=== PATIENT | female | born 1965 | race Caucasian/White ===

== ENCOUNTER 2018-10-28 15:30 | Emergency (ER) | payer MEDICAID ==
[~2018-10-28] VITALS: Ht 172.7 cm; Wt 99.8 kg
[~2018-10-28 15:30] MED LIST: ALBU18 MT; BECL80AE9 MT; HYDR12.56 PO; IBUP800T24 PO; NAPR500T31 PO; NIC21P TOP; NIFE30TA76 PO
[2018-10-28 15:39] VITALS: BP 138/93
== END 2018-10-28 16:58 | disposition home or self-care (01) ==
LOC: ER 15:33
DX: M79.604 Pain in right leg (principal); J44.9 Chronic obstructive pulmonary disease, unspecified; I10 Essential (primary) hypertension; I25.2 Old myocardial infarction; F17.210 Nicotine dependence, cigarettes, uncomplicated; Z86.73 Personal history of transient ischemic attack (TIA), and cerebral infarction without residual deficits; Z79.899 Other long term (current) drug therapy; Z79.1 Long term (current) use of non-steroidal anti-inflammatories (NSAID)
CPT/HCPCS: 93971

== ENCOUNTER → 2022-06-09 | Outpatient (CLI) | payer MEDICAID ==
[~2022-06-09] VITALS: Ht 172.7 cm; Wt 73.9 kg
[~2022-06-09] MED LIST changes: +ADENOSINE 62 MG in GIVE UN-DILUTED 0 ML IV STA; -IBUP800T24 PO; +IBUP800T27 PO; +NIFE1TAB31 PO; -NIFE30TA76 PO
[2022-06-09 08:43] VITALS: BP 153/92
== END | disposition home or self-care (01) ==
LOC: XYW 07:32
PROVIDERS: ATTEND Specialist
DX: I10 Essential (primary) hypertension (principal); E78.5 Hyperlipidemia, unspecified
CPT/HCPCS: 78452; 93017; A9500; J0153

== ENCOUNTER 2024-04-03 12:55 | Inpatient (IN) | payer MEDICAID ==
[~2024-04-03] VITALS: Ht 172.7 cm; Wt 77.4 kg
[~2024-04-03 12:55] MED LIST changes: -ADENOSINE 62 MG in GIVE UN-DILUTED 0 ML IV STA; +ASPI81CH59 PO; +ATOR20TA PO; +CETI-195 PO; +DAPA1TAB4 PO; +GLYC1AER IN; +HYDR-4902 PO; -HYDR12.56 PO; +HYDR12.59 PO; +IBUP-1456 PO; -IBUP800T27 PO; +LISI10TA34 PO; +LOSA-533 PO; +NAPR-746 PO; -NAPR500T31 PO
--- NOTE | 2024-04-03 13:15 | ECG ---
[facility] Test Date: 2024-04-03 Test Time: 13:11:08 Pat Name: KVNG JARAMILLO Department: ER Room: [address] [place] [address] Gender: F Group Worker: DWIGHT : 1965 Requested By: EDGARD ARZATE Order Number: [id number] Reading MD: Dank Nolasco Measurements Intervals [place] Rate: 110 P: 82 GA: 142 QRS: 83 QRSD: 85 T: 121 QT: 312 QTc: 423 Interpretive Statements Sinus tachycardia Paired ventricular premature complexes Right atrial enlargement Borderline right axis deviation Nonspecific T abnrm, anterolateral leads Baseline wander in lead(s) I,II,aVR Electronically Signed On 04-03-2024 16:12:29 PST by Dank Nolasco Please click the below link to view image of tracing.
--- NOTE | 2024-04-03 13:28 | ED.PDOC ---
SOB-HPI HPI Comments 58-year-old female presents with a chief complaint of SOB x yesterday onset with associated cough. Patient states that she has COPD and continues to smoke cigarettes. Patient reports that she feels like she cannot take a full deep breath. Patient has some audible wheezing. Patient denies use of inhaler or nebulizer at home. Non-productive cough. No other symptoms or modifying factors present at this time. Chief Complaint: Shortness of Breath Time Seen by MD: 13:01 Primary Care Provider: SURINDER Chang notes: Medications, Allergies Information Source: Patient Mode of Arrival: Ambulatory Severity: Moderate Timing: Days Duration: Since onset Context: At Rest PE Risk Factors: None History of: COPD, Other (HTN) Prehospital treatment: None Associated Signs and Symptoms: Wheeze, Cough If cough with SOB: Non-Productive Past Medical History PAST MEDICAL HISTORY: Cancer, COPD, CVA, HTN, [place] Surgical History: , Tubal Ligation ASSOCIATE SALES History: No Pertinent ASSOCIATE SALES History Family History Family History: Unobtainable Social History Smoker: Cigarettes Alcohol: Occasionally Drugs: Denies Drug Use Lives In: Home Constitutional: denies: chills, diaphoresis, fatigue, fever, malaise, sweats, weakness, others EENTM: denies: blurred vision, double vision, ear bleeding, ear discharge, ear drainage, ear pain, ear ringing, eye pain, eye redness, hearing loss, mouth pain, mouth swelling, nasal discharge, nose bleeding, nose congestion, nose pain, photophobia, tearing, throat pain, throat swelling, voice changes, others Respiratory: reports: shortness of breath; denies: cough, hemoptysis, orthopnea, SOB at rest, SOB with excertion, stridor, wheezing, others Cardiovascular: denies: chest pain, dizzy spells, diaphoresis, Dyspnea on exertion, edema, irregular heart beat, left arm pain, lightheadedness, palpitations, PND, syncope, others Gastrointestinal: denies: abdomen distended, abdominal pain, blood streaked bowels, constipated, diarrhea, dysphagia, difficulty swallowing, hematemesis, melena, nausea, poor appetite, poor fluid intake, rectal bleeding, rectal pain, vomiting, others Genitourinary: denies: abnormal vagina bleeding, burning, dyspareunia, dysuria, flank pain, frequency, hematuria, incontinence, pain, , vagina discharge, urgency, others Neurological: denies: dizziness, fainting, headache, left sided numbness, left sided weakness, numbness, paresthesia, pre-existing deficit, right sided numbn ess, right sided weakness, seizure, speech problems, tingling, tremors, weakness, others Musculoskeletal: denies: back pain, gout, joint pain, joint swelling, muscle pain, muscle stiffness, neck pain, others Integumetry: denies: bruises, change in color, change in hair/nails, dryness, laceration, lesions, lumps, rash, wounds, others Allergic/Immunocompromised: denies: Difficulty Healing, Frequent Infections, Hives, Itching, others Hematologic/Lymphatic: denies: anemia, blood clots, easy bleeding, easy bruising, swollen glands, others Endocrine: denies: excessive hunger, excessive sweating, excessive thirst, excessive urination, flushing, intolerance to cold, intolerance to heat, unexplained weight gain, unexplained weight loss, others Psychiatric: denies: anxiety, bipolar disorder, depression, hopeless, panic disorder, schizophrenia, sleepless, suicidal, others All Other Systems: Reviewed and Negative Physical Exam General Appearance: No Apparent Distress, Normal HEENT: Normal ENT Inspection, Pharynx Normal, TMs Normal Neck: Full Range of Motion, Non-Tender, Normal, Normal Inspection Respiratory: Chest Non-Tender, Wheezing (BILATERALLY) Cardiovascular: No Edema, No JVD, No Murmur, No Gallop, Normal Peripheral Pulses, Regular Rate/Rhythm Breast Exam: Deferred Gastrointestinal: No Organomegaly, Non Tender, No Pulsatile Mass, Normal Bowel Sounds, Soft Genitalia: Deferred Pelvic: Deferred Rectal: Deferred Extremities: No calf tenderness, Normal capillary refill, Normal inspection, Normal range of motion, Non-tender, No pedal edema Musculoskeletal : Apperance: Normal Neurologic: Alert, rug shampooer II-XII nml as Tested, No Motor Deficits, Normal Affect, Normal Mood, No Sensory Deficits Cerebellar Function: Normal Reflexes: Normal Skin: Dry, Normal Color, Warm Lymphatic: No Adenopathy Was a procedure done? Was a procedure done?: No Differential Dx Differential Diagnosis: Anxiety, Asthma, Bronchitis, CHF, COPD, Hyperventilation, Panic Attack, Pneumonia, Pneumothorax, Respiratory Distress, URI X-Ray, Labs, Meds, VS Vital Signs Date Time Temp Pulse Resp B/P (MAP) Pulse Ox O2 Delivery O2 Flow Rate FiO2 04/03/24 13:37 18 92 Room Air* 0 21 04/03/24 13:12 97.6 115 18 154/86 (108) 94 04/03/24 13:12 18 94 Room Air 04/03/24 13:11 110 Lab Test 04/03/24 13:33 Range/Units White Blood Count 7.8 4.4-10.8 10^3/uL Red Blood Count 5.14 4.0-5.20 10^6/uL Hemoglobin 15.7 12.2-16.2 g/dL Hematocrit 47.4 H 36.0-46.0 % Mean Corpuscular Volume 92.2 80.0-100.0 fL Mean Corpuscular Hemoglobin 30.5 28.0-32.0 pg Mean Corpuscular Hemoglobin Concent 33.1 32.0-36.0 g/dL Red Cell Distribution Width 13.4 11.8-14.3 % Platelet Count 213 140-450 10^3/uL Mean Platelet Volume 8.4 6.9-10.8 fL Neutrophils (%) (Auto) 85.9 H 37.0-80.0 % Lymphocytes (%) (Auto) 6.1 L 10.0-50.0 % Monocytes (%) (Auto) 7.6 0.0-12.0 % Eosinophils (%) (Auto) 0.0 0.0-7.0 % Basophils (%) (Auto) 0.4 0.0-2.0 % Neutrophils # (Auto) 6.7 1.6-8.6 10 ^3/uL Lymphocytes # (Auto) 0.5 0.4-5.4 10 ^3/uL Monocytes # (Auto) 0.6 0-1.3 10 ^3/uL Eosinophils # (Auto) 0 0-0.8 10 ^3/uL Basophils # (Auto) 0 0-0.2 10 ^3/uL Nucleated Red Blood Cells 0.3 % Sodium Level 137 136-145 mmol/L Potassium Level 5.4 H 3.5-5.1 mmol/L Chloride Level 101 98-107 mmol/L Carbon Dioxide Level 27 20-31 mmol/L Anion Gap 9 5-15 Blood Urea Nitrogen 19 9-23 mg/dL Creatinine 1.29 H 0.550-1.02 mg/dL Glomerular Filtration Rate Calc 48 >90 mL/min BUN/Creatinine Ratio 14.7 10.0-20.0 Serum Glucose 96 74-106 mg/dL Calcium Level 11.0 H 8.7-10.4 mg/dL Troponin I High Sensitivity 6 </=34 ng/L Current Medications Medications (Trade) Dose Ordered Sig/Patricia Route Start Time Stop Time Status Last Admin Albuterol (Ventolin Medneb) 5 mg ONCE ONCE NEB 04/03/24 13:30 04/03/24 13:31 DC 04/03/24 13:36 Ipratropium [place] (Atrovent Medneb) 0.5 mg ONCE ONCE NEB 04/03/24 13:30 04/03/24 13:31 DC 04/03/24 13:36 Time of 1ST Reevaluation: 13:31 Reevaluation 1ST: Unchanged Time of 2ND Reevaluation: 14:25 Reevaluation 2ND: Improved Patient Education/Counseling: Diagnosis, Treatment, Prognosis, Need For Follow Up Family Education/Counseling: No Family Present Departure 1 Departure Time of Disposition: 14:25 Impression: Primary Impression: COPD exacerbation Additional Impressions: Pneumonia Qualified Codes: J18.9 - Pneumonia, unspecified organism Tobacco abuse Tobacco abuse counseling Disposition: ADMITTED INPATIENT Admit to: [facility] Condition: Stable Discharged With: Self Critical Care Note Critical Care Time?: Yes (55 min-critical care time only) Critical care comment: Due to concerns for patients condition deteriorating, the care required my highest level of attention and readiness to intervene. I assessed the patient, reviewed the medical records, ordered the appropriate tests and treatments, then reassessed for results and responsiveness. I communicated with medical personnel and consultants and formulated a plan of care. Total critical care time excludes any procedures Stability Stability form required: No Heart Score Heart Score: Heart Score Response (Comments) Value History N/A 0 EKG N/A 0 Age N/A 0 Risk Factors N/A 0 Troponin N/A 0 Total 0 I personally scribed for EDGARD ARZATE MD ([email or web address]) on 04/03/24 at 13:28. Electronically submitted by Samm Lao ([email or web address]). EDGARD ARZATE MD Apr 03, 2024 13:28
[2024-04-03] MEDS: IPRATROPIUM BROM 0.5 MG/2.5ML INH SOL NEB ONE (13:36)
[2024-04-03] MEDS: ALBUTEROL SULF 2.5 MG/0.5ML(0.5%) NEB SOLN NEB ONE (13:36)
[2024-04-03 13:45] LABS: Basophils # (auto) 0 10 ^3/uL (0-0.2); Basophils % (auto) 0.4 % (0.0-2.0); Eosinophils # (auto) 0 10 ^3/uL (0-0.8); Hematocrit 47.4 % (36.0-46.0); Hemoglobin 15.7 g/dL (12.2-16.2); Lymphocytes # (auto) 0.5 10 ^3/uL (0.4-5.4); Lymphocytes % (auto) 6.1 % (10.0-50.0); Mean Corpuscular Hemoglobin 30.5 pg (28.0-32.0); Mean Corpuscular Hgb Conc. 33.1 g/dL (32.0-36.0); Mean Corpuscular Volume 92.2 fL (80.0-100.0); Monocytes # (auto) 0.6 10 ^3/uL (0-1.3); Monocytes % (auto) 7.6 % (0.0-12.0); Neutrophils # (auto) 6.7 10 ^3/uL (1.6-8.6); Neutrophils % (auto) 85.9 % (37.0-80.0); Nucleated Red Blood Cells % 0.3 %; Platelet Count (auto) 213 10^3/uL (140-450); Red Blood Cells 5.14 10^6/uL (4.0-5.20); Red Cell Distribution Width 13.4 % (11.8-14.3); White Blood Cell 7.8 10^3/uL (4.4-10.8)
--- NOTE | 2024-04-03 13:59 | DVH ---
CHEST RADIOGRAPH Indication: sob Technique: Single frontal view of the chest was obtained Comparison: None FINDINGS: Lines and Tubes: None Lungs: Increased density right lower lobe may be from patient's breast 4 pulmonary airspace disease. Consider lateral film for further evaluation. Pleura: No effusion. No pneumothorax. Cardiomediastinal contours: Unremarkable Bones: No acute osseous abnormality. IMPRESSION: 1. Increased tissue density in the right lower lung field. HS:Y
[2024-04-03 14:12] LABS: Chloride 101 mmol/L (98-107); Sodium 137 mmol/L (136-145)
[2024-04-03 14:13] LABS: Anion Gap 9 (5-15); Carbon Dioxide 27 mmol/L (20-31)
[2024-04-03 14:18] LABS: BUN/Creatinine Ratio 14.7 (10.0-20.0); Blood Urea Nitrogen 19 mg/dL (9-23); Glucose 96 mg/dL (74-106)
[2024-04-03 14:20] LABS: Potassium 5.4 mmol/L (3.5-5.1)
--- NOTE | 2024-04-03 15:20 | DVHHP2 ---
Patient Family History: Family history: Alzheimer's disease G8 FATHER Family history: Diabetes mellitus G8 MOTHER Allergies: Coded Allergies: NO KNOWN ALLERGIES (Unverified , 03/30/14) Home Meds Reported Medications Nicotine (Nicoderm 21MG/24HR) 1 Patch Ph, 1 PATCH TOP DAILY, #28 PATCH 1 Refill 03/31/14 Beclomethasone Dipropionate (Qvar) 80 Mcg Aer, 2 PUFF MT DAILY, #9 03/31/14 Albuterol Sulfate (Ventolin Hfa) Aer, 2 PUFF MT DAILYP, #18 03/31/14 Nifedipine (Nifedipine Er) 30 Mg Tab, PO DAILY, #30 03/31/14 Naproxen (Naproxen) 500 Mg Tab, PO BID, #60 03/31/14 Ibuprofen (Ibuprofen) 800 Mg Tab, PO Q8HPRN PRN for MODERATE PAIN, #90 03/31/14 Hydrochlorothiazide (Hydrochlorothiazide) 12.5 Mg Cap, PO DAILY, #30 03/31/14 Current Medications Current Medications Medications (Trade) Dose Ordered Sig/Patricia Route PRN Reason Start Time Stop Time Status Last Admin Temazepam (Restoril) 15 mg QHSP PRN PO FOR INSOMNIA 04/03/24 15:30 Ondansetron HCl (Zofran) 4 mg Q4HP PRN IV NAUSEA / VOMITING 04/03/24 15:30 Docusate Sodium (Colace Capsule) 100 mg BIDPRN PRN PO FOR CONSTIPATION 04/03/24 15:30 Enoxaparin Sodium (Lovenox) 40 mg DAILY SC 04/04/24 10:00 Azithromycin 250 ml @ 125 mls/hr DAILY IV 04/04/24 10:00 Ipratropium [place] (Atrovent Medneb) 0.5 mg Q6HR NEB 04/03/24 18:00 04/03/24 19:05 Albuterol (Ventolin Medneb) 5 mg Q6HR NEB 04/03/24 18:00 04/03/24 19:05 Nitroglycerin (Ntrostat Sublingual) 0.4 mg Q5MINP PRN SL FOR CHEST PAIN 04/03/24 15:30 Morphine Sulfate 2 mg Q30M PRN IV FOR CHEST PAIN 04/03/24 15:30 Nicotine (Nicoderm 21MG/ 24HR) 1 patch DAILY TD 04/03/24 16:00 04/03/24 16:12 Nifedipine (Procardia Xl (Time-Release)) 30 mg DAILY PO 04/04/24 10:00 Vital Signs Vital Signs Date Time Temp Pulse Resp B/P (MAP) Pulse Ox O2 Delivery O2 Flow Rate FiO2 04/03/24 19:06 115 20 96 04/03/24 19:01 Nasal Cannula* 2 28 04/03/24 18:25 143/101 (115) 04/03/24 16:18 99.0 99.0 Results Labs Test 04/03/24 15:43 04/03/24 14:21 04/03/24 13:33 Range/Units Influenza Type A Antigen Positive Negative Influenza Type B Antigen Negative Negative SARS-CoV-2 Antigen (Rapid) Negative NEGATIVE Troponin I High Sensitivity 5 </=34 ng/L White Blood Count 7.8 4.4-10.8 10^3/uL Red Blood Count 5.14 4.0-5.20 10^6/uL Hemoglobin 15.7 12.2-16.2 g/dL Hematocrit 47.4 H 36.0-46.0 % Mean Corpuscular Volume 92.2 80.0-100.0 fL Mean Corpuscular Hemoglobin 30.5 28.0-32.0 pg Mean Corpuscular Hemoglobin Concent 33.1 32.0-36.0 g/dL Red Cell Distribution Width 13.4 11.8-14.3 % Platelet Count 213 140-450 10^3/uL Mean Platelet Volume 8.4 6.9-10.8 fL Neutrophils (%) (Auto) 85.9 H 37.0-80.0 % Lymphocytes (%) (Auto) 6.1 L 10.0-50.0 % Monocytes (%) (Auto) 7.6 0.0-12.0 % Eosinophils (%) (Auto) 0.0 0.0-7.0 % Basophils (%) (Auto) 0.4 0.0-2.0 % Neutrophils # (Auto) 6.7 1.6-8.6 10 ^3/uL Lymphocytes # (Auto) 0.5 0.4-5.4 10 ^3/uL Monocytes # (Auto) 0.6 0-1.3 10 ^3/uL Eosinophils # (Auto) 0 0-0.8 10 ^3/uL Basophils # (Auto) 0 0-0.2 10 ^3/uL Nucleated Red Blood Cells 0.3 % Sodium Level 137 136-145 mmol/L Potassium Level 5.4 H 3.5-5.1 mmol/L Chloride Level 101 98-107 mmol/L Carbon Dioxide Level 27 20-31 mmol/L Anion Gap 9 5-15 Blood Urea Nitrogen 19 9-23 mg/dL Creatinine 1.29 H 0.550-1.02 mg/dL Glomerular Filtration Rate Calc 48 >90 mL/min BUN/Creatinine Ratio 14.7 10.0-20.0 Serum Glucose 96 74-106 mg/dL Calcium Level 11.0 H 8.7-10.4 mg/dL WHITLEY STEPHENS NP Apr 03, 2024 15:20
[2024-04-03] MEDS: cefTRIAXone 1GM/50ML D5W 50 ML IV ONE (15:28)
[2024-04-03] MEDS ORDERED: TEMAZEPAM 15 MG CAP PO PRN (15:30)
[2024-04-03] MEDS ORDERED: DOCUSATE SOD 100 MG CAP PO PRN (15:30)
[2024-04-03] MEDS ORDERED: MORPHINE SULFATE INJ 2 MG/ml SYRG IV PRN (15:30)
[2024-04-03] MEDS ORDERED: ONDANSETRON HCL 4 MG/2 ML VIAL IV PRN (15:30)
[2024-04-03] MEDS ORDERED: NITROGLYCERIN 0.4 MG SL TAB SL PRN (15:30)
[2024-04-03 15:32] VITALS: PULSE 115; RESP 24; O2SAT 91
[2024-04-03] MEDS: NICOTINE 21MG/24 HR TOPICAL PATCH TD SCH (16:12)
[2024-04-03 16:18] VITALS: BP 125/95; PULSE 115; RESP 20; TEMP 99; O2SAT 92
[2024-04-03 18:06] LABS: COVID19 ANTIGEN SOFIA FIA NEGATIVE (NEGATIVE)
[2024-04-03 18:10] LABS: Rapid Influenza A Positive (Negative); Rapid Influenza B Negative (Negative)
[2024-04-03 19:01] VITALS: PULSE 117; RESP 20; O2SAT 95
[2024-04-03] MEDS: ALBUTEROL SULF 2.5 MG/0.5ML(0.5%) NEB SOLN NEB SCH (19:05)
[2024-04-03] MEDS: IPRATROPIUM BROM 0.5 MG/2.5ML INH SOL NEB SCH (19:05)
[2024-04-03 19:06] VITALS: PULSE 115; RESP 20; O2SAT 96
[2024-04-04] VITALS (15 sets, daily range): BP systolic 103–152; BP diastolic 62–89; PULSE 80–116; RESP 14–20; TEMP 97.5–99.3; O2SAT 90–98
[2024-04-04] MEDS ORDERED: PRED10TA PO (00:27)
--- NOTE | 2024-04-04 09:33 | DVHHPRES ---
History of Present Illness Resident Creating Document: ERIC BROWNE RESIDENT Reason for Visit: Shortness of breath History of Present Illness This is a 58-year-old female with a past medical history of COPD, bilateral breast cancer s/p resection presented to the ED with the shortness of breaths of 1 day's duration. According to the patient, all her children and grandchildren at home have been having some upper respiratory infection and she finally caught it. She denied chest pain, but is only associated with coughing. Cough is productive of whitish sputum. she denies any fever chills nausea vomiting or any joint pain. In the ED items read temp: 99.0 heart rate 110, 116; respiratory 24 on 3 L was placed on 3 L of oxygen. chest x-ray shows Increased tissue density in the right lower lung field. Cardiovascular: HTN Past Surgical History: Mastectomy Family History: None Smoke: 1 pack per day (40 pack years) Lives: with Family Review of Systems Constitutional: No: Fever, Chills, Sweats, Weakness, Malaise, Other Eyes: No: Pain, Vision change, Conjunctivae inflammation, Eyelid inflammation, Other, Redness ENT: No: Ear pain, Ear discharge, Nose pain, Nose discharge, Nose congestion, Mouth pain, Mouth swelling, Throat pain, Throat swelling, Other Respiratory: Cough, Shortness of breath, SOB with excertion, Wheezing Cardiovascular: Chest Pain; No: Palpitations, Orthopnea, Paroxysmal Noc. Dyspnea, Edema, Lt Headedness, Other Gastrointestinal: No: Nausea, Vomiting, Abdominal Pain, Diarrhea, Constipation, Melena, Hematochezia, Other Genitourinary: No Dysuria, No Frequency, No Incontinence, No Hematuria, No Retention, No Other Musculoskeletal: No: other, neck pain, shoulder pain, arm pain, back pain, hand pain, leg pain, foot pain Skin: No: Rash, Lesions, Jaundice, Bruising, Other Neurological: No: Weakness, Numbness, Incoordination, Change in speech, Confusion, Seizures, Other Allergies: Coded Allergies: NO KNOWN ALLERGIES (Unverified , 03/30/14) Medications Current Medications Medications Dose Ordered Sig/Patricia Route Start Time Stop Time Status Last Admin Dose Admin Temazepam 15 mg QHSP PRN PO 04/03/24 15:30 Ondansetron HCl 4 mg Q4HP PRN IV 04/03/24 15:30 Docusate Sodium 100 mg BIDPRN PRN PO 04/03/24 15:30 Enoxaparin Sodium 40 mg DAILY SC 04/04/24 10:00 Azithromycin 250 ml @ 125 mls/hr DAILY IV 04/04/24 10:00 Ipratropium [place] 0.5 mg Q6HR NEB 04/03/24 18:00 04/04/24 06:12 0.5 MG Albuterol 5 mg Q6HR NEB 04/03/24 18:00 04/04/24 06:12 5 MG Nitroglycerin 0.4 mg Q5MINP PRN SL 04/03/24 15:30 Morphine Sulfate 2 mg Q30M PRN IV 04/03/24 15:30 Nicotine 1 patch DAILY TD 04/03/24 16:00 04/03/24 16:12 1 PATCH Nifedipine 30 mg DAILY PO 04/04/24 10:00 Exam Vital Signs Vital Signs Date Time Temp Pulse Resp B/P (MAP) Pulse Ox O2 Delivery O2 Flow Rate FiO2 04/04/24 09:00 99.1 116 18 133/70 (91) 98 99.1 04/04/24 06:16 Nasal Cannula 3.0 04/04/24 06:16 32 Exam General Appearance: Alert, Oriented X3, Cooperative, No acute distress on 3L of oxygen. Does not use oxygen at home HEENT: Atraumatic, PERRLA, EOMI, Mucous membrane moist/pink Respiratory: Mild wheezing Cardiovascular: Regular rate, Normal S1, Normal S2, No murmurs, no chest wall tenderness Abdominal: NO distention, no tenderness, bowel sounds present, no scars noted Extremities: No clubbing, No cyanosis, No edema, Normal pulses, No tenderness/swelling Skin: Dry and scaling skin Neuro: Normal gait, Normal speech, Strength at 5/5 X4 ext, Normal tone, Sensation intact, Cranial nerves 3-12 NL, Reflexes 2+ Psych/Mental Status: Mental status NL, Mood NL General Appearance: Alert, Oriented X3, Cooperative, No acute distress Labs/Xrays Labs Test 04/03/24 15:43 04/03/24 14:21 04/03/24 13:33 Range/Units Influenza Type A Antigen Positive Negative Influenza Type B Antigen Negative Negative SARS-CoV-2 Antigen (Rapid) Negative NEGATIVE Troponin I High Sensitivity 5 </=34 ng/L White Blood Count 7.8 4.4-10.8 10^3/uL Red Blood Count 5.14 4.0-5.20 10^6/uL Hemoglobin 15.7 12.2-16.2 g/dL Hematocrit 47.4 H 36.0-46.0 % Mean Corpuscular Volume 92.2 80.0-100.0 fL Mean Corpuscular Hemoglobin 30.5 28.0-32.0 pg Mean Corpuscular Hemoglobin Concent 33.1 32.0-36.0 g/dL Red Cell Distribution Width 13.4 11.8-14.3 % Platelet Count 213 140-450 10^3/uL Mean Platelet Volume 8.4 6.9-10.8 fL Neutrophils (%) (Auto) 85.9 H 37.0-80.0 % Lymphocytes (%) (Auto) 6.1 L 10.0-50.0 % Monocytes (%) (Auto) 7.6 0.0-12.0 % Eosinophils (%) (Auto) 0.0 0.0-7.0 % Basophils (%) (Auto) 0.4 0.0-2.0 % Neutrophils # (Auto) 6.7 1.6-8.6 10 ^3/uL Lymphocytes # (Auto) 0.5 0.4-5.4 10 ^3/uL Monocytes # (Auto) 0.6 0-1.3 10 ^3/uL Eosinophils # (Auto) 0 0-0.8 10 ^3/uL Basophils # (Auto) 0 0-0.2 10 ^3/uL Nucleated Red Blood Cells 0.3 % Sodium Level 137 136-145 mmol/L Potassium Level 5.4 H 3.5-5.1 mmol/L Chloride Level 101 98-107 mmol/L Carbon Dioxide Level 27 20-31 mmol/L Anion Gap 9 5-15 Blood Urea Nitrogen 19 9-23 mg/dL Creatinine 1.29 H 0.550-1.02 mg/dL Glomerular Filtration Rate Calc 48 >90 mL/min BUN/Creatinine Ratio 14.7 10.0-20.0 Serum Glucose 96 74-106 mg/dL Calcium Level 11.0 H 8.7-10.4 mg/dL Assessment/Plan Assessment/Plan Assessment COPD exacerbation Acute respiratory failure 40 pack years Influenza A infection Hyperkalemia likely secondary to antihypertensive ( patient taking losartan and lisinopril) Hypertension Hyperlipidemia LISA Plan Azithromycin 500mg daily Ipratropium/albuterol Oseltamivir 75 mg Continue nasal oxygen as can tolerate albuterol for hyperkalemia treatment atorvastatin 20 daily on Nefidepine Advance patient to take either lisinopril or losartan.Not both at the same time Code status: Full Goal of care discussed for more than 35 minutes Case and plan discussed with Dr. Caceres Plan discussed with: Patient My Orders Orders - ERIC BROWNE Procedure Category Date Status Time Albuterol Medneb PHA 04/04/24 Logged (Ventolin Medneb) 09:00 Date of Service: Apr 04, 2024 Billing Provider: GORGE CACERES MD Common Visit Codes: [id number] INP/OBS CARE (HIGH) Secondary Visit Codes: [id number] CARE PLAN 30 MINUTES ERIC BROWNE Apr 04, 2024 09:33 GORGE CACERES MD Apr 04, 2024 22:06
[2024-04-04] MEDS: NIFEdipine ER 30 MG TAB PO SCH (09:47)
[2024-04-04] MEDS: AZITHROMYCIN 500MG/ 250ML 250 ML IV SCH (09:47)
[2024-04-04] MEDS: ENOXAPARIN SOD 40 MG/0.4 ML SYRINGE SC SCH (09:48)
[2024-04-04] MEDS: OSELTAMIVIR 75 MG CAP PO SCH (10:05)
[2024-04-04] MEDS: ALBUTEROL SULF 2.5 MG/0.5ML(0.5%) NEB SOLN NEB ONE (10:07)
[2024-04-04 10:44] LABS: Basophils # (auto) 0 10 ^3/uL (0-0.2); Basophils % (auto) 0.6 % (0.0-2.0); Eosinophils # (auto) 0 10 ^3/uL (0-0.8); Hematocrit 40.1 % (36.0-46.0); Hemoglobin 13.6 g/dL (12.2-16.2); Lymphocytes # (auto) 1.2 10 ^3/uL (0.4-5.4); Mean Corpuscular Hgb Conc. 33.9 g/dL (32.0-36.0); Mean Corpuscular Volume 91.3 fL (80.0-100.0); Monocytes # (auto) 0.8 10 ^3/uL (0-1.3); Monocytes % (auto) 11.9 % (0.0-12.0); Neutrophils # (auto) 4.7 10 ^3/uL (1.6-8.6); Neutrophils % (auto) 69.5 % (37.0-80.0); Nucleated Red Blood Cells % 0.3 %; Platelet Count (auto) 177 10^3/uL (140-450); Red Cell Distribution Width 13.5 % (11.8-14.3); White Blood Cell 6.7 10^3/uL (4.4-10.8)
[2024-04-04 11:02] LABS: Alanine Aminotransferase 23 U/L (7-40); Albumin 4.2 g/dL (3.2-4.8); Alkaline Phosphatase 108 U/L (46-116); Anion Gap 8 (5-15); Aspartate Aminotransferase 40 U/L (13-40); BUN/Creatinine Ratio 20.4 (10.0-20.0); Calcium 9.5 mg/dL (8.7-10.4); Carbon Dioxide 25 mmol/L (20-31); Chloride 103 mmol/L (98-107); Sodium 136 mmol/L (136-145); Total Protein 6.2 g/dL (5.7-8.2)
[2024-04-04 11:03] LABS: Bilirubin, Total 0.2 mg/dL (0.2-1.0); Blood Urea Nitrogen 28 mg/dL (9-23); Glucose 133 mg/dL (74-106); Potassium 3.4 mmol/L (3.5-5.1)
[2024-04-04] MEDS: OSELTAMIVIR 30 MG CAP PO SCH (21:07)
[2024-04-05] VITALS (18 sets, daily range): BP systolic 101–124; BP diastolic 58–71; PULSE 72–110; RESP 14–20; TEMP 97.8–99.1; O2SAT 92–100
[2024-04-05 08:38] LABS: Chloride 104 mmol/L (98-107); Potassium 3.9 mmol/L (3.5-5.1); Sodium 140 mmol/L (136-145)
[2024-04-05 08:39] LABS: Anion Gap 7 (5-15); Calcium 9.5 mg/dL (8.7-10.4); Carbon Dioxide 29 mmol/L (20-31)
[2024-04-05 08:44] LABS: BUN/Creatinine Ratio 18.9 (10.0-20.0); Blood Urea Nitrogen 23 mg/dL (9-23); Glucose 103 mg/dL (74-106)
[2024-04-05] MEDS ORDERED: ALBU108A5 IN (09:16)
--- NOTE | 2024-04-05 20:44 | DVHPNRES ---
Progress Note Date Seen: Apr 05, 2024 Resident Creating Document: ERIC BROWNE RESIDENT Medical Necessity Reason Pt with a Central, PICC or Fol: No Medical Necessity Reason COPD exacerbation Subjective Review of Systems Patient today at the bedside. Complaints patient did mentioned that she feels she is getting a little better however on examination her chest 2 feels tight she is to get some wheezing going on therefore we will maintain the patient overnight continue with the breathing treatment and Z-Manolo and we will follow up with the patient in the morning. Vital signs normal patient has a increased demand for oxygen she is currently went from 3-4 L of oxygen. Objective vital signs Vital Sign Date Time Temp Pulse Resp B/P (MAP) Pulse Ox O2 Delivery O2 Flow Rate FiO2 04/05/24 17:26 98.4 102 19 105/58 (74) 92 98.4 04/05/24 09:45 3.0 04/05/24 09:45 Nasal Cannula* 32 Total Intake and Output 04/04/24 04/04/24 04/05/24 15:00 23:00 07:00 Intake Total 250 ml 640 ml 400 ml Balance 250 ml 640 ml 400 ml medications Current Medications Medications Dose Ordered Sig/Patricia Route Start Time Stop Time Status Last Admin Dose Admin Temazepam 15 mg QHSP PRN PO 04/03/24 15:30 Ondansetron HCl 4 mg Q4HP PRN IV 04/03/24 15:30 Docusate Sodium 100 mg BIDPRN PRN PO 04/03/24 15:30 Enoxaparin Sodium 40 mg DAILY SC 04/04/24 10:00 04/05/24 09:44 40 MG Azithromycin 250 ml @ 125 mls/hr DAILY IV 04/04/24 10:00 04/05/24 09:44 125 MLS/HR Ipratropium [place] 0.5 mg Q6HR NEB 04/03/24 18:00 04/05/24 18:02 0.5 MG Albuterol 5 mg Q6HR NEB 04/03/24 18:00 04/05/24 18:02 5 MG Nitroglycerin 0.4 mg Q5MINP PRN SL 04/03/24 15:30 Morphine Sulfate 2 mg Q30M PRN IV 04/03/24 15:30 Nicotine 1 patch DAILY TD 04/03/24 16:00 04/05/24 09:43 1 PATCH Nifedipine 30 mg DAILY PO 04/04/24 10:00 04/05/24 09:44 30 MG Oseltamivir Phosphate 30 mg Q12HR PO 04/04/24 22:00 04/08/24 22:01 04/05/24 09:44 30 MG Examination General Appearance: Alert, Oriented X3, Cooperative, No acute distress on 3L of oxygen. Does not use oxygen at home HEENT: Atraumatic, PERRLA, EOMI, Mucous membrane moist/pink Respiratory: wheezing Cardiovascular: Regular rate, Normal S1, Normal S2, No murmurs, no chest wall tenderness Abdominal: NO distention, no tenderness, bowel sounds present, no scars noted Extremities: No clubbing, No cyanosis, No edema, Normal pulses, No tenderness/swelling Skin: Dry and scaling skin Neuro: Normal gait, Normal speech, Strength at 5/5 X4 ext, Normal tone, Sensation intact, Cranial nerves 3-12 NL, Reflexes 2+ Psych/Mental Status: Mental status NL, Mood NL General Appearance: Alert, Oriented X3, Cooperative, No acute distress laboratory and microbiology Laboratory Tests 04/05/24 07:50 04/04/24 10:22 Test 04/05/24 07:50 Range/Units Serum Glucose 103 74-106 mg/dL Problem List/Assessment/Plan Problem List/Assessment/Plan COPD exacerbation Acute respiratory failure 40 pack years Influenza A infection Hyperkalemia likely secondary to antihypertensive ( patient taking losartan and lisinopri--> improved Hypertension Hyperlipidemia insomnia LISA ( baseline cr :0.88 in 2014) Plan Azithromycin 500mg daily Ipratropium/albuterol Oseltamivir 75 mg Continue nasal oxygen as can tolerate albuterol for hyperkalemia treatment atorvastatin 20 daily on Nefidepine Continue breathing treatment Advised patient to take either lisinopril or losartan.Not both at the same time Code status: Full Goal of care discussed for more than 35 minutes Case and plan discussed with Dr. Caceres Plan discussed with: Patient Date of Service: Apr 05, 2024 Billing Provider: GORGE CACERES MD Common Visit Codes: [id number] INP/OBS CARE(HIGH) ERIC BROWNE RESIDENT Apr 05, 2024 20:44 GORGE CACERES MD Apr 06, 2024 19:23
[2024-04-05] MEDS ORDERED: ACETAMINOPHEN 325 MG TAB PO ONE (23:15)
[2024-04-05] MEDS: ACETAMINOPHEN 325 MG TAB PO ONE (23:51)
[2024-04-06] VITALS (13 sets, daily range): BP systolic 98–143; BP diastolic 50–74; PULSE 79–98; RESP 15–20; TEMP 36.6; O2SAT 83–100
[2024-04-06] MEDS: SODIUM CHLORIDE 0.9% 500 ML IV ONE (09:31)
[2024-04-06] MEDS: methylPREDNISolone SOD SUCC 40 MG/ML VL IV SCH (10:59)
[2024-04-06] MEDS ORDERED: METH4PAK PO (11:18)
[2024-04-06] MEDS ORDERED: AZIT-74 PO (11:18)
[2024-04-06] MEDS ORDERED: OSEL6SUS5 PO (11:18)
--- NOTE | 2024-04-06 11:23 | DVHDSRES ---
Discharge Summary Date of Admission Resident Creating Document: ERIC BROWNE RESIDENT Apr 03, 2024 at 15:16 Date of Discharge: Apr 06, 2024 Admitting Diagnosis Copd exacerbation Labs/Diagnostic Data: PATIENT: BRAD JARAMILLOAACCT: [id number] UNIT: [id number] : 1965 LOC: ER ROOM / BED: / AGE / SEX: 58 / F ADM STATUS: REG ER SERVICE 1320 ORDERING PHYSICIAN: EDAGRD ARZATE MD PROCEDURE(s): CXRP - CHEST PORTABLE REASON: sob ORDER NUMBER(s): [id number], ACCESSION NUMBER(s): [id number] CHEST RADIOGRAPH Indication: sob Technique: Single frontal view of the chest was obtained Comparison: None FINDINGS: Lines and Tubes: None Lungs: Increased density right lower lobe may be from patient's breast 4 pulmonary airspace disease. Consider lateral film for further evaluation. Pleura: No effusion. No pneumothorax. Cardiomediastinal contours: Unremarkable Bones: No acute osseous abnormality. IMPRESSION:1. Increased tissue density in the right lower lung field. HS:Y ATED BY: BRAD DURAN Jr. DO DICTATED DATE/TIME: 04/03/24 1356 Laboratory Results Test 04/05/24 07:50 04/04/24 10:22 04/03/24 15:43 04/03/24 14:21 Sodium Level 140 mmol/L (136-145) Potassium Level 3.9 mmol/L (3.5-5.1) Chloride Level 104 mmol/L (98-107) Carbon Dioxide Level 29 mmol/L (20-31) Anion Gap 7 (5-15) Blood Urea Nitrogen 23 mg/dL (9-23) Creatinine 1.22 mg/dL (0.550-1.02) Glomerular Filtration Rate Calc 51 mL/min (>90) BUN/Creatinine Ratio 18.9 (10.0-20.0) Serum Glucose 103 mg/dL (74-106) Calcium Level 9.5 mg/dL (8.7-10.4) White Blood Count 6.7 10^3/uL (4.4-10.8) Red Blood Count 4.40 10^6/uL (4.0-5.20) Hemoglobin 13.6 g/dL (12.2-16.2) Hematocrit 40.1 % (36.0-46.0) Mean Corpuscular Volume 91.3 fL (80.0-100.0) Mean Corpuscular Hemoglobin 31.0 pg (28.0-32.0) Mean Corpuscular Hemoglobin Concent 33.9 g/dL (32.0-36.0) Red Cell Distribution Width 13.5 % (11.8-14.3) Platelet Count 177 10^3/uL (140-450) Mean Platelet Volume 9.0 fL (6.9-10.8) Neutrophils (%) (Auto) 69.5 % (37.0-80.0) Lymphocytes (%) (Auto) 18.0 % (10.0-50.0) Monocytes (%) (Auto) 11.9 % (0.0-12.0) Eosinophils (%) (Auto) 0.0 % (0.0-7.0) Basophils (%) (Auto) 0.6 % (0.0-2.0) Neutrophils # (Auto) 4.7 10 ^3/uL (1.6-8.6) Lymphocytes # (Auto) 1.2 10 ^3/uL (0.4-5.4) Monocytes # (Auto) 0.8 10 ^3/uL (0-1.3) Eosinophils # (Auto) 0 10 ^3/uL (0-0.8) Basophils # (Auto) 0 10 ^3/uL (0-0.2) Nucleated Red Blood Cells 0.3 % Total Bilirubin 0.2 mg/dL (0.2-1.0) Aspartate Amino Transferase (AST) 40 U/L (13-40) Alanine Aminotransferase (ALT) 23 U/L (7-40) Alkaline Phosphatase 108 U/L (46-116) Total Protein 6.2 g/dL (5.7-8.2) Albumin 4.2 g/dL (3.2-4.8) Influenza Type A Antigen Positive (Negative) Influenza Type B Antigen Negative (Negative) SARS-CoV-2 Antigen (Rapid) Negative (NEGATIVE) Troponin I High Sensitivity 5 ng/L (</=34) Other Laboratory Tests 04/05/24 07:50 04/04/24 10:22 Brief Hx & Hospital Course: This 58-year-old female with a past medical history of COPD, 40 pack years, hypertension bilateral breast cancer s/p mastectomy presented to the ED with the severe shortness of breaths a day prior to presentation. According to the patient, all her children and grandchildren at home have been experiencing some upper respiratory infection and she finally caught it. Her shortness of breath was associated with cough and whitish sputum production. She denies fever, chills, nausea vomiting or any joint pain. VITAL read : 99.0 heart rate 110, 116; respiratory 24 on 3 L was placed on 3 L of oxygen. Lab showed cr: 1.29 ( baseline 0.88, 2015) . Chest x-ray showed Increased tissue density in the right lower lung field. Patient was managed for COPD exacerbation with antibiotics, breathing treatment and solumedrol, oseltamivir and oxygen. On examination, patient is doing better today. She is on room air and SpO2 IS 94 %. Will discharge patient home on Z-manolo, medrol manolo, oseltamivir. Examination General Appearance: Alert, Oriented X3, Cooperative, No acute distress on 3L of oxygen. Does not use oxygen at home HEENT: Atraumatic, PERRLA, EOMI, Mucous membrane moist/pink Respiratory: Wheezing improved, better air entry Cardiovascular: Regular rate, Normal S1, Normal S2, No murmurs, no chest wall tenderness Abdominal: NO distention, no tenderness, bowel sounds present, no scars noted Extremities: No clubbing, No cyanosis, No edema, Normal pulses, No tenderness/swelling Skin: Dry and scaling skin Neuro: Normal gait, Normal speech, Strength at 5/5 X4 ext, Normal tone, Sensation intact, Cranial nerves 3-12 NL, Reflexes 2+ Psych/Mental Status: Mental status NL, Mood NL General Appearance: Alert, Oriented X3, Cooperative, No acute distress Diagnoses COPD exacerbation Acute respiratory failure Influenza A infection Hyperkalemia likely secondary to antihypertensive LISA Hypertension Hyperlipidemia insomnia Discharge plan Z-Manolo 500 mg daily for 3 days Medrol manolo as directed Oseltamivir for 10 day Follow up at the discharge Clinic in 7 days Follow up with the primary care doctor Recommended follow up with the operator lights Advise to follow up with her PCP Case and discharge plan discussed with Dr. Caceres Condition at Discharge: Good Final Diagnosis/Problems List COPD exacerbation Acute respiratory failure 40 pack years Influenza A infection Hyperkalemia likely secondary to antihypertensive ( patient taking losartan and lisinopri--> improved Hypertension Hyperlipidemia insomnia LISA ( baseline cr :0.88 in 2015) Discharge Disposition: Home Discharge Statement: "Patient was advised to return to the ER or call 911 if any headaches, dizziness, shortness of breath, chest pain, abdominal pain, bleeding, fevers, or worsening of medical condition. Patient was counseled about treatment plan, medications, possible side effects, patientverbalized understanding. All questions were answered to the best of my ability. This discharge took greater then 30 minutes in planning, reviewing documentation, counseling the patient, and discussing with other team members." ASSESSMENT ASSESSMENT Assessment Date of Service: Apr 06, 2024 Billing Provider: GORGE CACERES MD Common Visit Codes: 66068-UDQ/OBS DISCH DAY >30min ERIC BROWNE RESIDENT Apr 06, 2024 11:23 GORGE CACERES MD Apr 06, 2024 19:24
== END 2024-04-06 13:50 | disposition home or self-care (01) | DRG 140 ==
LOC: ER 12:55 → OVERFLOW 15:16 → WEST WING 23:18
PROVIDERS: ADMIT Internal Medicine Geriatric Medicine; ATTEND Internal Medicine Geriatric Medicine
DX: J44.1 Chronic obstructive pulmonary disease with (acute) exacerbation (principal); J96.00 Acute respiratory failure, unspecified whether with hypoxia or hypercapnia; N17.9 Acute kidney failure, unspecified; J10.1 Influenza due to other identified influenza virus with other respiratory manifestations; I10 Essential (primary) hypertension; E87.5 Hyperkalemia; F17.210 Nicotine dependence, cigarettes, uncomplicated; E78.5 Hyperlipidemia, unspecified; G47.00 Insomnia, unspecified; J44.0 Chronic obstructive pulmonary disease with (acute) lower respiratory infection; Z86.73 Personal history of transient ischemic attack (TIA), and cerebral infarction without residual deficits; Z79.899 Other long term (current) drug therapy
CPT/HCPCS: 36415; 71045; 80048; 80053; 84484; 85025; 87426; 87804; 93005; 94640; 99291; G0378; G9035